=== PATIENT | female | born 1960 | race Two or more races ===

== ENCOUNTER 2022-05-11 09:51 | Emergency (ER) | payer OTHER ==
[~2022-05-11] VITALS: Ht 160 cm; Wt 58.1 kg
== END 2022-05-11 18:37 | disposition home or self-care (01) ==
LOC: ER 09:51
DX: S63.501A Unspecified sprain of right wrist, initial encounter (principal); W18.39XA Other fall on same level, initial encounter; Y93.89 Activity, other specified; Y92.832 Beach as the place of occurrence of the external cause; Y99.9 Unspecified external cause status